=== PATIENT | female | born 1960 | race Two or more races ===

== ENCOUNTER 2025-01-14 11:35 | Observation (INO) | payer SELFPAY ==
[2025-01-14] VITALS (7 sets, daily range): BP systolic 119–152; BP diastolic 81–92; PULSE 78–113; RESP 13–18; TEMP 36.2–37.1; O2SAT 94–98; BMI 33.4
--- NOTE | 2025-01-14 12:04 | XR_ITS ---
Examination: CT abdomen with intravenous contrast CT pelvis with intravenous contrast 2-D coronal reconstructions 2-D sagittal reconstructions Date and time of exam:January 14, 2025, 1645 hours INDICATIONS: Right lower abdominal pain nausea and diarrhea. Beginning today CTDI: vol (mGy) 12.9. DLP: (mGycm) 785. Technique: Multiple axial sections of the abdomen and pelvis have been obtained. 64 slice high-resolution scanner used. 3 mm axial sections have been obtained, post intravenous injection of 60 cc Isovue 370. 2-D sagittal, coronal reconstructions obtained. Low dose protocols were performed. One or more of the following dose reduction techniques were used; automated exposure control, adjustment of the mA and/or KV according to patient size, use of iterative reconstruction technique. Findings: 6 cm bleb in the right lower lung zone Fatty infiltration throughout the liver Liver mildly irregular in contour Spleen not enlarged No pancreatic mass No adrenal mass Benign left renal cyst No renal or ureteral calculi, no hydronephrosis Abdominal aortic calcification no aneurysmal dilatation Enlarged inflamed fluid-filled appendix medial to the cecum, axial images 144 through 177 No pelvic abscess Colonic diverticulosis Urinary bladder intact Moderate osteopenia IMPRESSION: Acute appendicitis, no localized perforation, no pelvic abscess
--- NOTE | 2025-01-14 12:05 | PD.EDRME ---
Rapid Medical Screening Exam E Arrival date/time: 01/14/25 11:35 64-year-old female presents to the emerged from today for complaints of right lower quadrant abdominal pain Chief Complaint: Abdominal Pain Vital signs: Vital Signs Temperature 98.8 F 01/14/25 11:48 Pulse Rate 113 H 01/14/25 11:48 Respiratory Rate 18 01/14/25 11:48 Blood Pressure 119/84 01/14/25 11:48 Pulse Oximetry (%) 95 01/14/25 11:48 Oxygen Delivery Method Room Air 01/14/25 11:48
[2025-01-14 12:41] LABS: Basophils # (Auto) 0.1 Thou/mm3 (0.0-0.2); Basophils % (Auto) 1 % (0-2.5); Eosinophils # (Auto) 0.5 Thou/mm3 (0.0-0.5); Eosinophils % (Auto) 4 % (0-10); Hematocrit 47.9 % (36.0-46.0); Hemoglobin 15.7 g/dL (12.0-16.0); Immature Granulocytes Auto 0.06 Thou/mm3 (0.00-0.00); Lymphocytes # (Auto) 4.5 Thou/mm3 (1.0-4.8); Lymphocytes % (Auto) 34 % (10-50); Mean Corpuscular HGB Conc 32.8 g/dl (31.0-37.0); Mean Corpuscular Hemoglobin 29.6 pg (25.0-35.0); Mean Corpuscular Volume 90 fL (80-100); Monocytes # (Auto) 0.7 Thou/mm3 (0.0-0.8); Monocytes % (Auto) 5 % (0-12); Neutrophils # (Auto) 7.7 Thou/mm3 (1.8-7.7); Neutrophils % (Auto) 57 % (37-80); Nucleated Red Blood Cell # 0.00 Thou/mm3 (0.00-0.00); Nucleated Red Blood Cell % 0 /100 WBC (0); Platelet Count 340 Thou/mm3 (140-440); RDW Standard Deviation 46.0 fL (36.4-46.3); Red Blood Count 5.31 Miln/mm3 (4.00-5.20); White Blood Count 13.5 Thou/mm3 (3.6-11.0)
[2025-01-14 13:12] LABS: Alanine Aminotransferase 25 U/L (10-49); Albumin, Serum 4.5 gm/dL (3.4-4.8); Albumin/Globulin Ratio 1.5 (1.2-2.2); Alkaline Phosphatase 76 U/L (46-116); Anion Gap 10 (7-16); Aspartate Amino Transferase 26 U/L (0-34); BUN/Creatinine Ratio 13 Ratio (12-20); Bilirubin,Total 0.6 mg/dL (0.3-1.2); Blood Urea Nitrogen 12 mg/dL (9-23); Calcium 10.0 mg/dL (8.3-10.6); Calcium (Corrected) 10.0 mg/dL (8.5-10.1); Carbon Dioxide 24.4 mMol/L (20.0-31.0); Chloride 107 mMol/L (98-107); Creatinine (Component) 0.9 mg/dL (0.6-1.3); Estimated Creatinine Clearance 78.0 mL/min (>60); Globulin 3.0 gm/dL (2.3-3.5); Glucose 123 mg/dL (74-106); Lipase 33 U/L (12-53); Osmolality,Calculated 281 (275-295); Potassium 4.2 mMol/L (3.4-5.1); Sodium 141 mMol/L (136-145); Total Protein 7.5 gm/dL (5.7-8.2); eGFR > 60 See Note
[2025-01-14 13:31] LABS: Collection Type, Urine Clean Catch
[2025-01-14 14:03] LABS: Bacteria,Urine Rare; Bilirubin,Urine Negative (Negative); Blood,Urine Negative (Negative); Clarity,Urine Turbid (Clear/Hazy); Color,Urine Lt-Yellow (Lt Yel-Yel); Culture Indicated,Urine Not Indicated; Glucose, Urine Negative (Negative); Ketones,Urine Negative (Negative); Leukocyte Esterase,Urine Negative (Negative); Nitrite,Urine Negative (Negative); PH,Urine 6.5 (5.0-7.0); Protein,Urine Trace (Neg - Trace); RBC,Urine 3 /hpf (0-3); Specific Gravity,Urine 1.018 (1.001-1.035); Squamous Epithelial Cell,Urine 7 /hpf (0-5); Urobilinogen,Urine Negative mg/dL (0.0-1.0); WBC,Urine 2 /hpf (0-5)
--- NOTE | 2025-01-14 17:24 | PD.EDABDPN ---
ED Abdominal Pain RME/HPI General Chief Complaint: Abdominal Pain Stated complaint: LOWER ABD PAIN ON RT SIDE, NAUSEA AND DIARRHEA Time seen by provider: 01/14/25 14:54 Arrival date/time: 01/14/25 11:35 64-year-old female with medical history significant for hypertension, Graves' disease, neuropathy presents to the emergency department today for complaints of right lower quadrant abdominal pain Limitations: no limitations RME / HPI RME / HPI narrative: 01/14/25 11:35 64-year-old female presents to the emerged from today for complaints of right lower quadrant abdominal pain Related Data Home Medications ?Medication ?Instructions ?Recorded ?Confirmed levothyroxine 137 mcg tablet 137 mcg PO QDAY 01/15/25 01/15/25 lisinopril 20 1 tab PO QDAY 01/15/25 01/15/25 mg-hydrochlorothiazide 25 mg tablet rosuvastatin 5 mg tablet 5 mg PO QDAY 01/15/25 01/15/25 Previous Rx's ?Medication ?Instructions ?Recorded docusate sodium 100 mg capsule 100 mg PO BID #20 caps 01/15/25 (Colace) hydrocodone 5 mg-acetaminophen 325 1 tab PO Q6H PRN pain (scale score 01/15/25 mg tablet 7-10) #10 tabs ibuprofen 600 mg tablet 600 mg PO Q8H PRN pain (scale 01/15/25 score 4-6) #15 tabs Allergies Allergy/AdvReac Type Severity Reaction Status Date / Time codeine Allergy Verified 01/14/25 23:44 Review of Systems Review of Systems Systems Reviewed: All systems reviewed, normal except as documented Constitutional Constitutional: Reports system reviewed and no additional complaints, except as documented, Denies fever(s) and Denies headache(s) Eyes Eyes: Reports system reviewed and no additional complaints, except as documented and Denies blurry vision ENT Ears, Nose, Mouth, and Throat: Reports system reviewed and no additional complaints, except as documented, Denies headache(s), Denies nasal congestion and Denies nasal discharge Cardiovascular Cardiovascular: Reports system reviewed and no additional complaints, except as documented, Denies chest pain and Denies dyspnea Respiratory Respiratory: Reports system reviewed and no additional complaints, except as documented, Denies chest congestion, Denies cough and Denies dyspnea Gastrointestinal Gastrointestinal: Reports system reviewed and no additional complaints, except as documented, Reports abdominal pain, Denies nausea and Denies vomiting Integumentary/Breasts Skin/Breast: Reports system reviewed and no additional complaints, except as documented and Denies rash Neurologic Neurologic: Reports system reviewed and no additional complaints, except as documented, Reports as per HPI and Denies headache(s) Past Medical History Past Medical History NEUROLOGIC: Positive Neurological Disorders CARDIAC: Positive Cardiac Disorders and Hypertension RESPIRATORY: Negative Asthma GENITOURINARY: Negative Renal Disease ENDOCRINE: Negative Diabetes Mellitus Type 2 HEMATOLOGIC: Negative Sickle Cell Disease OTHER HISTORY: Negative Blood Transfusions, Blood Transfusion Reaction or Anesthesia Reactions Surgical History OTHER SURGICAL HX: Hysterectomy Social History SMOKING STATUS: Current some day smoker SUBSTANCE USE: does not use ED Exam General Limitations: Present no limitations General appearance: Present alert and in no apparent distress Head Head exam: Present atraumatic and normocephalic Eye Eye exam: Present normal appearance, PERRL and EOMI; Absent conjunctival injection ENT ENT exam: Present normal exam, normal oropharynx and mucous membranes moist Neck Neck exam: Present normal inspection, full ROM and trachea midline Chest Chest inspection: Present normal inspection and symmetric chest wall rise Respiratory Respiratory exam: Present normal lung sounds bilaterally Cardiovascular Cardiovascular exam: Present regular rate, normal rhythm and normal heart sounds Abdominal Exam Abdominal exam: Present soft, tenderness and normal bowel sounds; Absent distention, guarding, rebound or rigidity Extremities Exam Extremities exam: Present normal inspection and full ROM Back Exam Back exam: Present normal inspection and full ROM Neurological Exam Neurological exam: Present alert, oriented X3 and CN II-XII intact Psychiatric Psychiatric exam: Present normal affect and normal mood Skin Skin exam: Present warm, dry, intact and normal color Course Quality Measures none Orders Category Date Time Status COVID-19 Screening Questionnaire NOW Care 01/14/25 17:[address] Screening NOW Care 01/14/25 12:04 Completed Decision to Admit X1 Care 01/14/25 17:[address] abdomen pelvis w con Stat Exams 01/14/25 12:04 Completed CBC Stat Lab 01/14/25 12:37 Completed Comprehensive Metabolic Panel Stat Lab 01/14/25 12:37 Completed Lipase Stat Lab 01/14/25 12:37 Completed UA, C/S IF [Urinalysis, C/S if Indicated] Stat Lab 01/14/25 13:12 Completed Vital Signs Vital signs: Vital Signs Temperature 98.8 F 01/14/25 11:48 Pulse Rate 113 H 01/14/25 11:48 Respiratory Rate 18 01/14/25 11:48 Blood Pressure 119/84 01/14/25 11:48 Pulse Oximetry (%) 95 01/14/25 11:48 Oxygen Delivery Method Room Air 01/14/25 11:48 O2 saturation 95% room air within normal limits Abdominal Pain MDM MDM Narrative MDM Narrative:: 64-year-old female with medical history significant for hypertension, Graves' disease, neuropathy presents to the emergency department today for complaints of right lower quadrant abdominal pain On exam patient has right lower quadrant tenderness with rebound tenderness I suspect patient is appendicitis Lab work and imaging obtained patient does have appendicitis on CT scan Consultation: [id number] Kirk for admission At time of admission patient is in no distress Patient data External records reviewed:: [facility] previous records Clinical information provided by:: patient Social determinants that could affect healthcare access:: none Patient has the following chronic illnesses:: See history How is presenting disease/condition affected by chronic disease/condition?: uneffected by Evaluation data The following diagnostics were reviewed and interpreted by me:: lab results and radiology exam(s) Lab and/or radiology exams considered but not ordered:: Labs radiology obtained Interpretation Summary: Reviewed by me Medications / Prescriptions Medications or Prescriptions considered but not ordered:: Given no meds Medication administrations:: Medication Administration History Discontinued Medications Acetaminophen (Acetaminophen 325 Mg Tablet) 650 mg PO Q6H PRN PRN Reason: Fever >101.5 Stop: 02/13/25 18:38 Hydrocodone Bitart/Acetaminophen (Hydrocodone/Apap 5/325 Tablet) 1 tab PO Q6HR PRN PRN Reason: PAIN SCALE 4-10(Mod-Sev Stop: 01/19/25 23:34 Hydrocodone Bitart/Acetaminophen (Hydrocodone/Apap 5/325 Tablet) 1 tab PO Q6HR PRN PRN Reason: PAIN SCALE 4-6 (Moderate Stop: 01/20/25 00:06 Last Admin: 01/15/25 08:04 Dose: 1 tab Documented By: FUNMI Bisacodyl (Bisacodyl 10 Mg Supp) 10 mg PA X1 ONE; Protocol Stop: 01/15/25 09:52 Last Admin: 01/15/25 10:09 Dose: Not Given Documented By: FUNMI Non-Admin Reason: Patient Refused Bisacodyl (Bisacodyl 5 Mg Tabec) 10 mg PO X1 ONE; Protocol Stop: 01/15/25 09:52 Last Admin: 01/15/25 10:08 Dose: 10 mg Documented By: FUNMI Bupivacaine HCl (Bupivacaine Mpf 0.5% 30 Ml Vial) Confirm Administered Dose 30 ml .ROUTE .STK-MED ONE Stop: 01/14/25 22:08 Cefoxitin Sodium (Cefoxitin Sod Inj 1 Gm Vial) Confirm Administered Dose 2 gm .ROUTE .STK-MED ONE Stop: 01/14/25 22:18 Docusate Sodium (Docusate Sod 100 Mg Capsule) 100 mg PO BID [facility]; Protocol Stop: 02/14/25 08:59 Last Admin: 01/15/25 08:04 Dose: 100 mg Documented By: FUNMI Fentanyl Citrate (Fentanyl Cit Inj 50 Mcg/Ml Amp 2ml) Confirm Administered Dose 100 mcg .ROUTE .STK-MED ONE Stop: 01/14/25 22:18 Fentanyl Citrate (Fentanyl Cit Inj 50 Mcg/Ml Amp 2ml) 25 mcg IVP Q5M PRN PRN Reason: PAIN SCALE 1-3 (mild Stop: 01/15/25 00:36 Hydromorphone HCl (Hydromorphone Inj 2 Mg/Ml Vial) 0.4 mg IVP Q5M PRN PRN Reason: PAIN SCALE 7-10 (Severe Stop: 01/15/25 00:36 Potassium Chloride/Dextrose/Sod Cl (Kcl 20 Meq/L In D5-1/2ns) 20 meq in 1,000 mls @ 100 mls/hr IV .Q10H [facility] Stop: 02/13/25 18:44 Last Admin: 01/14/25 20:53 Dose: 100 mls/hr Documented By: CATHRYN Cefoxitin Sodium 2 gm/ Sodium (Chloride) 50 mls @ 100 mls/hr IV Q6HR [facility] Stop: 01/21/25 18:44 Last Admin: 01/15/25 12:13 Dose: 100 mls/hr Documented By: Infusion: 01/15/25 05:52 Dose: Infused Documented By: Admin: 01/15/25 05:22 Dose: 100 mls/hr Documented By: Infusion: 01/15/25 01:13 Dose: Infused Documented By: Admin: 01/15/25 00:43 Dose: 100 mls/hr Documented By: Infusion: 01/14/25 21:35 Dose: Infused Documented By: Admin: 01/14/25 20:51 Dose: 100 mls/hr Documented By: CATHRYN Acetaminophen (Ofirmev Inj) Confirm Administered Dose 100 mls @ ud IV .STK-MED ONE Stop: 01/14/25 22:33 Potassium Chloride/Dextrose/Sod Cl (Kcl 20 Meq/L In D5-1/2ns) 20 meq in 1,000 mls @ 50 mls/hr IV .Q20H [facility] Stop: 02/13/25 23:34 Last Admin: 01/15/25 00:08 Dose: 50 mls/hr Documented By: REBEL Midazolam HCl (Midazolam Inj 1 Mg/Ml Vial 2 Ml) Confirm Administered Dose 2 mg .ROUTE .STK-MED ONE Stop: 01/14/25 22:18 Morphine Sulfate (Morphine Sulf Inj 10 Mg/Ml Vial) 3 mg IVP Q5M PRN PRN Reason: PAIN SCALE 4-6 (Moderate Stop: 01/15/25 00:36 Morphine Sulfate (Morphine Sulf Inj 10 Mg/Ml Vial) 2 mg IVP Q2H PRN PRN Reason: PAIN SCALE 7-10 (Severe Stop: 01/16/25 23:34 Ondansetron HCl (Ondansetron Inj 2 Mg/Ml Inj 2 Ml) 4 mg IVP Q6H PRN PRN Reason: NAUSEA OR VOMITING Stop: 02/13/25 18:38 Ondansetron HCl (Ondansetron Inj 2 Mg/Ml Inj 2 Ml) 4 mg IVP X1 ONE Stop: 01/14/25 22:37 Propofol (Propofol Inj 10 Mg/Ml Vial 20 Ml) Confirm Administered Dose 200 mg IV .STK-MED ONE Stop: 01/14/25 22:17 Sugammadex Sodium (Sugammadex Inj 100 Mg/Ml 2ml Vial) Confirm Administered Dose 200 mg .ROUTE .STK-MED ONE Stop: 01/14/25 22:18 No meds Consultations Consultation(s) initiated? (list below): Yes Consultation #1 (Physician, Specialty, Details): Dr Kirk Diagnosis Differential diagnosis abdominal pain: abdominal pain, acute appendicitis and pancreatitis Most likely diagnosis given after review of the tests above:: Appendicitis Admission Indicated Admission indicated?: indicated Admission Request Was there a request for admission?: Yes Admission Attestation Admission request attestation: Discussed case with [] from Hospitalist service regarding admission. Discussed patients ED course, exam findings, labs, and radiology results. The Hospitalist [agrees,declines] to accept the patient for admission. Disposition Plan Disposition Plan: Admit Discharge Plan Plan Patient Disposition: Admit Acute Care w/in Hospital Discharge Disposition comment: Stable Problem List Clinical Impression: Acute appendicitis Patient/Caregiver Discharge Instructions Discharge Activity: activity as tolerated PA/VENDOR MANAGEMENT ASSOCIATE Supervising Physician PA/VENDOR MANAGEMENT ASSOCIATE Supervising Physician: dr nash
--- NOTE | 2025-01-14 19:06 | EKG_ITS ---
[facility] Test Date: 2025-01-14 Pat Name: CUONG SOSA Department: Room: - Gender: Female State Director: : 1960 Requested By: Sue Perdomo Order Number: [id number] Reading MD: Sue Perdomo Measurements Intervals [place] Rate: 86 P: 40 OK: 183 QRS: -28 QRSD: 78 T: 56 QT: 387 QTc: 464 Interpretive Statements SINUS RHYTHM LOW QRS VOLTAGE IN PRECORDIAL LEADS [QRS DEFLECTION < 1.0 mV IN CHEST LEADS] POSSIBLE ANTERIOR MYOCARDIAL INFARCTION , PROBABLY OLD [30 ms Q WAVE IN V3/V4, OR R < 0.2 mV IN V4] No previous ECG available for comparison /store/S0/[id number].pdf
[2025-01-14] MEDS: CEFOXITIN 2 GM in SODIUM CHLORIDE 0.9% (Popper) 50 ML IV (20:51)
[2025-01-14] MEDS: KCL 20 mEq/L in D5-1/2NS 20 MEQ/1,000 ML BAG 100 MEQ IV (20:53)
--- NOTE | 2025-01-14 21:36 | PD.SURHP ---
HPI Date of Admission 01/14/25 18:39 Chief Complaint Chief Complaint: Right lower quadrant abdominal pain with nausea and vomiting HPI 64-year-old female with history of hypertension and Graves' disease presented to the emergency department with acute onset of abdominal pain. Her pain started yesterday around periumbilical region. The pain was initially intermittent. Since earlier today her pain has become persistent, progressively worse and localized over right lower quadrant. She has had nausea and vomiting, but denies fever, chills, diarrhea, constipation or dysuria. She denies having similar symptoms in the past. Review of Systems Constitutional Constitutional: Denies chills, Denies fever(s) and Denies headache(s) ENT Ears, Nose, Mouth, and Throat: Denies headache(s) Cardiovascular Cardiovascular: Denies chest pain Respiratory Respiratory: Denies cough Gastrointestinal Gastrointestinal: Reports abdominal pain, Reports nausea and Reports vomiting Genitourinary Genitourinary: Denies difficulty voiding Neurologic Neurologic: Denies headache(s) Hematologic/Lymphatic Hematologic/Lymphatic: Denies easy bleeding and Denies easy bruising Past Medical History Surgical History OTHER SURGICAL HX: Hysterectomy Social History SMOKING STATUS: Current every day smoker SUBSTANCE USE: does not use ALCOHOL: Never Meds Home Medications and Allergies Allergies Allergy/AdvReac Type Severity Reaction Status Date / Time codeine Allergy Verified 01/14/25 11:39 Exam Vital Signs Temp Pulse Resp BP Pulse Ox O2 Del Method 98.4 F 88 18 137/92 H 94 L Room Air 01/14/25 18:58 01/14/25 18:58 01/14/25 18:58 01/14/25 18:58 01/14/25 18:58 01/14/25 18:58 Constitutional Constitutional: no acute distress Routine Respiratory Exam Respiratory: Present CTA bilaterally Routine Cardiovascular Exam Cardiovascular: Present RRR Routine Abdominal Exam Abdominal: Present soft, normoactive bowel sounds and tenderness (Right lower quadrant tenderness to palpation with guarding, no rebound tenderness or peritonitis at this time); Absent distended Results Results: Laboratory Laboratory results: results reviewed Results: Imaging CT scan - abdomen: report reviewed and image reviewed CT scan - pelvis: report reviewed and image reviewed Assessment & Plan Problem List (1) Acute appendicitis: Qualifiers: Acute appendicitis type: unspecified acute appendicitis type Qualified Code(s): K35.80 - Unspecified acute appendicitis Status: Acute Plan Will take patient to the operating room for laparoscopic possible open appendectomy. Risks include but not limited to infection, bleeding, injury to bowel, bladder, surround neurovascular structures, abdominal sepsis and or abdominal abscess, need for further procedure and or operation, pneumonia and blood clot discussed with the patient. Benefits and alternatives explained to her, all her questions answered, she agreed and consented to proceed with the operation. Quality Measures Quality Measures none
--- NOTE | 2025-01-14 23:12 | PD.SUROPNT ---
Date of Procedure 01/14/25 Pre Op Diagnosis Acute appendicitis Post Op Diagnosis Acute appendicitis Procedure Laparoscopic appendectomy Findings Inflamed, hyperemic and dilated appendix without perforation. Mild amount of infraumbilical adhesions from previous operation Procedure Description Patient was brought into the operating room in supine position. After administration of general endotracheal anesthesia, abdomen was prepped and draped in standard surgical manner. A Veress needle was inserted through the umbilicus and pneumoperitoneum was obtained up to 15 mmHg. The Veress needle was removed and a 5 mm umbilical incision was made. A 5 mm trocar was placed and laparoscopic camera was inserted. Patient was noted to have some mild amount of infraumbilical adhesions from previous operation. Under direct visualization a laparoscopic camera a 5 mm trocar placed in suprapubic region and a 10 mm trocar placed in left lower quadrant away from the adhesions. The abdomen was inspected, the cecum was identified and followed until the appendix was identified. The appendix was noted to be inflamed, dilated and hyperemic without perforation. A window was created between the appendix and mesoappendix and the appendix was divided near the appendix and cecal junction with blue Endo ALIS stapling device. The mesoappendix was divided with ho Endo ALIS stapling device. The appendix was placed inside an Endo Catch and removed from the abdomen utilizing left lower quadrant trocar site. Abdomen and pelvis copiously and thoroughly washed and irrigated, all the fluids were suctioned and the suctioned fluid returned clear. Hemostasis was adequate and satisfactory, staple lines were intact without bleeding or any leakage. Left lower quadrant trocar sites fascial defect was closed with 0 Vicryl using Endo closure device. Instruments and trocars removed, pneumoperitoneum was evacuated and the incisions closed with 4-0 Monocryl subcuticular fashion. Instruments, needles and sponge counts were reported to be correct ??2. Patient tolerated the procedure well, was extubated, breathing spontaneously and without difficulty and was transferred to postanesthesia care in stable condition. Anesthesia GETA and local Pathology / specimen Other (Appendix) Estimated Blood Loss 25 Condition Stable Disposition PACU Surgeon Zachary Kirk MD Surgical Staff Operation Date: 01/14/25 22:45 Case Staff Anesthesiologist: Magen Alexandra RN First Assistant: Kiana Nolan
--- NOTE | 2025-01-14 23:20 | SUR.PHASEI ---
received report from Dr. Cristina and RN Irina. Pt sedated, vss, IV x2 intact - no redness or infiltration noted. Dermabond dressing to abd x3 CDI.
--- NOTE | 2025-01-14 23:44 | SUR.PHASEI ---
pt recovering well, pt sedated, arousable to voice, answers appropriately. no distress noted. Pt denies any pain at this time. VSS. dressing remains CDI.
--- NOTE | 2025-01-14 23:55 | SUR.PHASEI ---
pt recovering well. pt asleep but arousable to voice, pt denies any pain or nausea. Dressing x3 to abd remains CDI. IV x2 remains intact. vss. report given to MANGO Ellis.
[2025-01-15 00:08] VITALS: BP 159/98; PULSE 76; RESP 20; TEMP 36.1; O2SAT 94; BMI 33.4
[2025-01-15] MEDS: KCL 20 mEq/L in D5-1/2NS 20 MEQ/1,000 ML BAG 50 MEQ IV (00:08)
--- NOTE | 2025-01-15 00:13 | PC.NURSE ---
Pt came in from surgery, alert but still sleepy, pt able to answer all the admit questions. No C/O of pain at this time.
[2025-01-15 00:38] VITALS: BP 131/79; PULSE 71; RESP 16; TEMP 36.1; O2SAT 96
[2025-01-15] MEDS: CEFOXITIN 2 GM in SODIUM CHLORIDE 0.9% (Popper) 50 ML IV ×3 (00:43→12:13)
[2025-01-15 01:17] VITALS: BP 166/84; PULSE 73; RESP 17; TEMP 36.1; O2SAT 96
--- NOTE | 2025-01-15 03:10 | PC.NURSE ---
Pt is asleep at this time, no C/O of pain.
[2025-01-15 04:00] VITALS: BP 120/74; PULSE 73; RESP 17; TEMP 36.3; O2SAT 95
--- NOTE | 2025-01-15 04:15 | PC.NURSE ---
Pt get up and void, tolerated well without complaints of pain.
[2025-01-15 08:00] VITALS: BP 142/64; PULSE 76; RESP 18; TEMP 36.5; O2SAT 94
[2025-01-15] MEDS: DOCUSATE SOD 100 MG CAPSULE PO (08:04)
[2025-01-15] MEDS: HYDROcodone/APAP 5/325 TABLET 1 TAB PO (08:04)
--- NOTE | 2025-01-15 11:41 | PC.SS ---
Addendum entered by Gianna Chaudhary 01/15/25 11:48: SS reviewed financial counselor who documented that patient was denied HPE. Patient remains a true self pay. She will need to follow up with [facility]. Human Assistance. Original Note: Patient is alert/oriented. Patient was able to verify demographics. Patient is independent with ADL's. She uses a cane as needed. Patient admitted for acute appendicitus. Patient receive transportation assistance from family. PCP: Shabana Tompkins NP at [facility] in [place]. Last appt. was last week. Pharmacy: [facility]. No further d/c needs. Alt medical decision maker: [email or web address], Juan A Shannon, d/c plan: return home.
[2025-01-15 12:00] VITALS: BP 135/82; PULSE 83; RESP 19; TEMP 36.4; O2SAT 93
--- NOTE | 2025-01-15 13:32 | PD.SURPROG ---
Documentation for date of: 01/15/25 Subjective Subjective Narrative: Patient is seen and examined. Her pain is improving. She is tolerating diet well and voiding without difficulty Exam Vital Signs Temp Pulse Resp BP Pulse Ox O2 Del Method O2 Flow Rate 97.7 F 76 18 142/64 H 94 L Room Air 2 01/15/25 08:00 01/15/25 08:00 01/15/25 08:00 01/15/25 08:00 01/15/25 08:00 01/15/25 08:00 01/14/25 23:50 Constitutional Constitutional: no acute distress Routine Abdominal Exam Comments: Abdomen is soft and nondistended. Incisions are clean, dry and intact Assessment & Plan Assessment Additional comments: Postop day #1 status post laparoscopic appendectomy Plan Discharge home PROCEDURES: Procedures Laparoscopic appendectomy
== END 2025-01-15 14:35 | disposition home or self-care (01) ==
LOC: SERX 17:36 → SERHOLD 19:13 → S3NX 01-15 00:03
PROVIDERS: Nurse Practitioner Primary Care; Admitting Provider Surgery; Emergency Provider Emergency Medicine; Visit Provider Surgery
PROC: 0DTJ4ZZ Resection of Appendix, Percutaneous Endoscopic Approach (ICD-10-PCS; CPT 44970; principal; 2025-01-14 22:30)
DX: K35.80 Unspecified acute appendicitis (principal); K35.30 Acute appendicitis with localized peritonitis, without perforation or gangrene; I10 Essential (primary) hypertension
CPT/HCPCS: 44970; 36415; 74177; 80053; 81001; 83690; 85025; 93005; 99284; A4217; A4649; G0378; J0131; J0694; J2250; J2704; J3010; J3480; J3490; J7050; Q9967; A9270